=== PATIENT | male | born 1985 | race Caucasian/White ===

== ENCOUNTER 2019-06-01 15:40 | Emergency (ER) | payer OTHER ==
[2019-06-01] MEDS ORDERED: Acetaminophen/oxyCODONE 325-5 MG Tab PO ONE (15:41)
[2019-06-01] MEDS ORDERED: HYDROmorphone 1 MG/ML Syringe IVPUSH ONE ×2 (16:17→18:05)
[2019-06-01] MEDS ORDERED: Ondansetron 4 MG/2 ML SDV IV ONE ×2 (16:17→18:23)
[2019-06-01] MEDS ORDERED: Sodium Chloride 0.9% 10 ML Syringe FLUSH PRN (16:17)
[2019-06-01] MEDS ORDERED: Sodium Chloride 0.9% 1,000 ML IV ONE (16:17)
[2019-06-01 16:40] LABS: ANION GAP 17.7
[2019-06-01] MEDS ORDERED: Ketorolac 30 MG/ML SDV IVPUSH ONE (18:05)
[2019-06-01] MEDS ORDERED: Tamsulosin 0.4 MG Cap.ER PO ONE (18:06)
--- NOTE | 2019-06-01 18:20 | EDM.PDOC ---
"Scribed by Shalonda Ely 06/01/19 [id number] for Kristy Joiner MD ED HPI GENERAL MEDICAL PROBLEM - General Chief Complaint: Abdominal Pain Stated Complaint: PAIN IN RIGHT ABDOMEN AREA Time Seen by Provider: 06/01/19 16:06 Source of Information: Reports: Patient, RN, RN Notes Reviewed History Limitations: Reports: No Limitations - History of Present Illness INITIAL COMMENTS - FREE TEXT/NARRATIVE: Patient presents to ER stating that he starting having right upper quadrant pain about 40 minutes ago and it is increasing in intensity. Onset: Today Duration: Getting Worse Location: Reports: Abdomen Quality: Reports: Ache Severity: Moderate Improves with: Reports: None Worsens with: Reports: None Associated Symptoms: Reports: No Other Symptoms Right Lower Abdomen Pain Score (Numeric/FACES): 8 - Related Data Allergies Allergy/AdvReac Type Severity Reaction Status Date / Time erythromycin base Allergy Cannot Verified 06/01/19 16:03 [From Erythrocin] Remember Home Meds: Home Meds . [No Known Home Meds] 08/21/17 [History] Past Medical History - Past Health History Medical/Surgical History: Denies Medical/Surgical History Social & Family History - Family History Cardiac: Reports: [place] Other Cardiac Family History: grandmother had heart attack, pt is insure what types of cardiac hx his aunts/uncles have had - Caffeine Use Caffeine Use: Reports: Soda ED ROS GENERAL - Review of Systems Review Of Systems: Comprehensive ROS is negative, except as noted in HPI. ED EXAM, GI/ABD - Physical Exam Exam: See Below Exam Limited By: No Limitations General Appearance: Alert, WD/WN, No Apparent Distress Eyes: Bilateral: Normal Appearance Ears: Normal External Exam, Normal Canal, Hearing Grossly Normal, Normal TMs Nose: Normal Inspection, Normal Mucosa, No Blood Throat/Mouth: Normal Inspection, Normal Lips, Normal Teeth, Normal Gums, Normal Oropharynx, Normal Voice, No Airway Compromise Head: Atraumatic, Normocephalic Neck: Normal Inspection Respiratory/Chest: Lungs Clear Cardiovascular: Regular Rate, Rhythm GI/Abdominal Exam: Normal Bowel Sounds, Soft, No Distention, Rebound (RLQ), Tender (RLQ). No: Guarding, Rigid Back Exam: Normal Inspection Extremities: Normal Inspection Neurological: Alert, Oriented Psychiatric: Normal Affect, Normal Mood Skin Exam: Warm, Dry, Intact, Normal Color, No Rash Course - Vital Signs Last Recorded V/S: Last Vital Signs Temp 97.8 F 06/01/19 16:06 Pulse 91 06/01/19 16:06 Resp 16 06/01/19 16:06 BP 159/94 H 06/01/19 16:06 Pulse Ox 96 06/01/19 16:06 - Orders/Labs/Meds Orders: Active Orders 24 hr Category Date Time Status Peripheral IV Care [RC] . DIRECTED Care 06/01/19 16:17 Active Abdomen Pelvis wo Cont [CT] Urgent Exams 06/01/19 16:50 Taken Sodium Chloride 0.9% [Saline Flush] Med 06/01/19 16:17 Active 10 ml FLUSH ASDIRECTED PRN Peripheral IV Insertion Adult [OM.PC] Stat Oth 06/01/19 16:16 Ordered Medication Orders Sodium Chloride (Saline Flush) 10 ml FLUSH ASDIRECTED PRN PRN Reason: Keep Vein Open Last Admin: 06/01/19 16:28 Dose: 10 ml Labs: Laboratory Tests 06/01/19 06/01/19 06/01/19 Range/Units 16:15 16:15 16:30 WBC 8.5 (5.0-10.0) 10^3/uL RBC 5.01 (4.6-6.2) 10^6/uL Hgb 15.0 (14.0-18.0) g/dL Hct 42.4 (40.0-54.0) % MCV 84.6 (80-100) fL MCH 29.9 (27.0-34.0) pg MCHC 35.4 H (33.0-35.0) g/dL Plt Count 224 (150-450) 10^3/uL Neut % (Auto) 64.0 (42.2-75.2) % Lymph % (Auto) 26.4 (20.5-50.1) % [place] % (Auto) 8.2 H (2-8) % Eos % (Auto) 1.3 (1.0-3.0) % Baso % (Auto) 0.1 (0.0-1.0) % Sodium 137 (135-145) mmol/L Potassium 4.7 (3.6-5.0) mmol/L Chloride 101 (101-111) mmol/L Carbon Dioxide 23.0 (21.0-31.0) mmol/L Anion Gap 17.7 BUN 20 H (7-18) mg/dL Creatinine 1.5 H (0.6-1.3) mg/dL Est Cr Clr Drug Dosing 75.44 mL/min Estimated GFR (MDRD) 53 BUN/Creatinine Ratio 13.33 Glucose 113 H (74-105) mg/dL Calcium 9.1 (8.4-10.2) mg/dl Total Bilirubin 1.4 H (0.2-1.0) mg/dL AST 35 (10-42) IU/L ALT 28 (10-60) IU/L Alkaline Phosphatase 58 (42-121) IU/L Total Protein 7.8 (6.7-8.2) g/dl Albumin 4.3 (3.2-5.5) g/dl Globulin 3.5 Albumin/Globulin Ratio 1.23 Amylase 73 (28-100) U/L Lipase 40 (22-51) U/L Urine Color Yellow (YELLOW) Urine Appearance Clear (CLEAR) Urine pH 6.0 (5.0-9.0) Ur Specific [place] 1.020 (1.005-1.030) Urine Protein Negative (NEGATIVE) Urine Glucose (UA) Negative (NEGATIVE) Urine Ketones Negative (NEGATIVE) Urine Occult Blood Moderate H (NEGATIVE) Urine Nitrite Negative (NEGATIVE) Urine Bilirubin Negative (NEGATIVE) Urine Urobilinogen 0.2 (0.2-1.0) mg/dL Ur Leukocyte Esterase Negative (NEGATIVE) Urine RBC 5-10 H /HPF Urine WBC Not seen (0-5/HPF) /HPF Ur Epithelial Cells Rare (NOT SEEN) /HPF Urine Bacteria Rare (0-FEW/HPF) /HPF Urine Mucus Rare (NOT SEEN) /LPF Meds: Medications Generic Name Dose Route Start Last Admin Trade Name Freq PRN Reason Stop Dose Admin Sodium Chloride 10 ml 06/01/19 16:17 06/01/19 16:28 Saline Flush FLUSH 10 ml ASDIRECTED PRN Administration Keep Vein Open Discontinued Medications Generic Name Dose Route Start Last Admin Trade Name Freq PRN Reason Stop Dose Admin Hydromorphone HCl 1 mg 06/01/19 16:17 06/01/19 16:28 Dilaudid IVPUSH 06/01/19 16:18 1 mg ONETIME ONE Administration Hydromorphone HCl 1 mg 06/01/19 18:05 Dilaudid IVPUSH 06/01/19 18:06 ONETIME ONE Sodium Chloride 1,000 mls @ 999 mls/hr 06/01/19 16:17 06/01/19 16:28 Normal Saline IV 06/01/19 17:17 999 mls/hr .BOLUS ONE Administration Ketorolac Tromethamine 30 mg 06/01/19 18:05 Toradol IVPUSH 06/01/19 18:06 ONETIME ONE Ondansetron HCl 4 mg 06/01/19 16:17 06/01/19 16:28 Zofran IV 06/01/19 16:18 4 mg ONETIME ONE Administration Tamsulosin HCl 0.4 mg 06/01/19 18:06 Flomax PO 06/01/19 18:07 ONETIME ONE - Radiology Interpretation Free Text/Narrative:: [facility] [place] [facility] Final Radiology Report Call: [phone] assistance Online chat: [email or web address] Name: RITU VIVAS Age: 34Years M Date: 06/01/2019 SSN: -- : 1985 Study: CT ABDOMEN/PELVIS WO Requesting Physician: KRISTY JOINER Images: [id number] Addl Studies: Provided Clinical History: Contrast: Without Contrast Medium: Contrast Amount: Contrast Method: Page 1 of 2 PROCEDURE INFORMATION: Exam: CT Abdomen And Pelvis Without Contrast Exam date and time: 06/01/2019 4:57 PM Age: 34 years old Clinical indication: Abdominal pain; Patient HX: Rlq pain, non-elevated wbc. Trace hematuria TECHNIQUE: Imaging protocol: Computed tomography of the abdomen and pelvis without contrast. Radiation optimization: All CT scans at this facility use at least one of these dose optimization techniques: automated exposure control; mA and/or kV adjustment per patient size (includes targeted exams where dose is matched to clinical indication); or iterative reconstruction. COMPARISON: No relevant prior studies available. FINDINGS: Liver: Normal. No mass. Gallbladder and bile ducts: Normal. No calcified stones. No ductal dilation. Pancreas: Normal. No ductal dilation. Spleen: Normal. No splenomegaly. Adrenals: Normal. No mass. Kidneys and ureters: Absent left kidney. Right kidney with mild hydroureteronephrosis. Distal right ureteral 2 mm calculus. This is just above the bladder. There are multiple additional punctate right renal calculi within calices. At least 3 additional 1-2 mm calculi are noted. Stomach and bowel: Unremarkable. No obstruction. No mucosal thickening. Appendix: No evidence of appendicitis. Intraperitoneal space: Unremarkable. No free air. No significant fluid collection. Vasculature: Unremarkable. No abdominal aortic aneurysm. Lymph nodes: Unremarkable. No enlarged lymph nodes. RITU VIVAS | Final Radiology Report CONFIDENTIALITY STATEMENT This report is intended only for use by the referring physician, and only in accordance with law. If you received this in error, call [phone]. Page 2 of 2 Bladder: Unremarkable urinary bladder. Reproductive: Unremarkable as visualized. Bones/joints: Unremarkable. No acute fracture. Soft tissues: Unremarkable. IMPRESSION: 1. Right hydroureteronephrosis of [id number] severity with distal right ureteral 2 mm calculus. Additional nonobstructive right renal calculi in the upper collecting system. 2. Absent left kidney. Recommend clinical correlation. Thank you for allowing us to participate in the care of your patient. Dictated and Authenticated by: Flynn Chacon MD 06/01/2019 5:52 PM Central Time ([place] & [place]) - Re-Assessments/Exams Free Text/Narrative Re-Assessment/Exam: 06/01/19 18:[address] Tracy (urologist) via [facility]. He agrees to see the pt in clinic. Departure - Departure Time of Disposition: 18:16 Disposition: Home, Self-Care 01 Condition: Fair Clinical Impression: Kidney stone on right side, Solitary right kidney - Discharge Information *PRESCRIPTION DRUG MONITORING PROGRAM REVIEWED*: No *COPY OF PRESCRIPTION DRUG MONITORING REPORT IN PATIENT TOMMIE: No Instructions: Kidney Stones, Awry-rr-Dqva, Renal Colic, Udgh-pa-Dwqs Forms: ED Department Discharge Additional Instructions: Rx: Percocet (Oxycodone APAP) 5mg/325mg *Do not drive while under the influence of this medication. Rx: Flomax 0.4mg Rx: Zofran 4mg Strain all urine to see if you pass the stone. Call [phone] tomorrow morning to schedule an appointment with Dr. Tracy at [facility] in [place] for evaluation of the kidney stone, and for the finding of a single kidney. Sepsis Event Note - Evaluation Sepsis Screening Result: No Definite Risk - Focused Exam Vital Signs: Vital Signs Temp Pulse Resp BP Pulse Ox 06/01/19 16:06 97.8 F 91 16 159/94 H 96 Date Exam was Performed: 06/01/19 Time Exam was Performed: 18:15 - My Orders Last 24 Hours: My Active Orders 06/01/19 16:16 Peripheral IV Insertion Adult [OM.PC] Stat 06/01/19 16:17 Peripheral IV Care [RC] . DIRECTED Sodium Chloride 0.9% [Saline Flush] 10 ml FLUSH ASDIRECTED PRN 06/01/19 16:50 Abdomen Pelvis wo Cont [CT] Urgent - Assessment/Plan Last 24 Hours: My Active Orders 06/01/19 16:16 Peripheral IV Insertion Adult [OM.PC] Stat 06/01/19 16:17 Peripheral IV Care [RC] . DIRECTED Sodium Chloride 0.9% [Saline Flush] 10 ml FLUSH ASDIRECTED PRN 06/01/19 16:50 Abdomen Pelvis wo Cont [CT] Urgent I have read and agree with the documentation that has been completed regarding this visit. By signing this record, I attest that the documentation was completed in my physical presence and is an accurate record of the encounter."
[2019-06-01] MEDS ORDERED: Acetaminophen/oxyCODONE 325-5 MG Tab ONE (18:49)
== END 2019-06-01 19:02 | disposition home or self-care (01) ==
LOC: DL.ED 15:40
DX: N20.0 Calculus of kidney (principal); Z88.1 Allergy status to other antibiotic agents
CPT/HCPCS: 36415; 74176; 80053; 81001; 82150; 83690; 85025; 96361; 96374; 96375; 96376; 99284; A9270; J1170; J1885; J2405; J7030

== ENCOUNTER 2021-03-07 10:22 | Emergency (ER) | payer OTHER ==
--- NOTE | 2021-03-07 10:52 | EDM.PDOC ---
"<Randy Joiner - Last Filed: 03/07/21 12:27> ED HPI GENERAL MEDICAL PROBLEM - General Chief Complaint: Chest Pain Stated Complaint: [id number] CHEST PAIN x3 DAYS DIZZY Time Seen by Provider: 03/07/21 11:00 - Related Data Allergies Allergy/AdvReac Type Severity Reaction Status Date / Time erythromycin base Allergy Cannot Verified 03/07/21 10:45 [From Erythrocin] Remember Home Meds: Home Meds . [No Known Home Meds] 08/21/17 [History] Course - Radiology Interpretation Free Text/Narrative:: [facility] [place] [facility] Final Radiology Report Call: [phone] assistance Online chat: [email or web address] Name: RITU VIVAS Age: 36Years M Date: 03/07/2021 SSN: -- : 1985 Study: CT CHEST W CONT Requesting Physician: Washington Palmer Images: [id number] Addl Studies: Provided Clinical History: sob, suspected PE L upper chest pain Contrast: With Contrast Medium: Isovue 370 Contrast Amount: 80 mL Contrast Method: Intravenous (IV) Page 1 of 2 PROCEDURE INFORMATION: Exam: CT Chest With Contrast; Diagnostic Exam date and time: 03/07/2021 11:49 AM Age: 36 years old Clinical indication: Shortness of breath and other: Suspected pe; Other: Left upper chest pain; Additional info: SOB, suspected pe L upper chest pain TECHNIQUE: Imaging protocol: Diagnostic computed tomography of the chest with contrast. Radiation optimization: All CT scans at this facility use at least one of these dose optimization techniques: automated exposure control; mA and/or kV adjustment per patient size (includes targeted exams where dose is matched to clinical indication); or iterative reconstruction. Contrast material: ISOVUE 370; Contrast volume: 80 ml; Contrast route: INTRAVENOUS (IV); COMPARISON: CT Abdomen Pelvis wo Cont 06/01/2019 4:57 PM FINDINGS: Limitations: The study is technically limited by breathing motion artifact. Lungs: Mild ill-defined perihilar opacities present in the left lung. Mild ill- defined foci of airspace disease in the inferior right middle lobe. Two noncalcified left lower lobe nodules measuring up to approximately 7 mm in size. Pleural spaces: No pleural effusion or pneumothorax. Heart: The heart is not enlarged. No pericardial effusion. Aorta: No thoracic aortic aneurysm or dissection. Lymph nodes: No pathologically enlarged lymph nodes. Bones/joints: No acute osseous abnormality. Multilevel Schmorl's node formation in the thoracic spine. RITU VIVAS | Final Radiology Report CONFIDENTIALITY STATEMENT This report is intended only for use by the referring physician, and only in accordance with law. If you received this in error, call [phone]. Page 2 of 2 Soft tissues: No acute soft tissue abnormality. IMPRESSION: 1. Mild bilateral airspace disease. This may be due to pneumonia. 2. Nonspecific left lower lobe nodules. For patients at low risk (minimal or absent history of smoking and of other known risk factors), recommend CT Chest at 3-6 months, then consider CT Chest at 18- 24 months. For patients at high risk (history of smoking or of other known risk factors), recommend CT Chest at 3-6 months, then CT Chest at 18-24 months. (Reference: Joel) REFERENCES: Morrohojayme H, et al. Guidelines for Management of Incidental Pulmonary Nodules Detected on CT Images: From the Fleischner Society 2017. Radiology. 2017;284(1):228-243. Thank you for allowing us to participate in the care of your patient. Dictated and Authenticated by: Rg Deleon MD 03/07/2021 12:27 PM Central Time ([place] & [place]) Departure - Departure Disposition: Home, Self-Care 01 Clinical Impression: Pneumonia Qualifiers: Pneumonia type: due to unspecified organism Laterality: right Lung location: upper lobe of lung Qualified Code(s): J18.9 - Pneumonia, unspecified organism Instructions: Community-Acquired Pneumonia, Adult Forms: ED Department Discharge Additional Instructions: RX: Levaquin Use tylenol and motrin for pain as needed. If any new symptoms or concerns develop contact your [facility] facility or return to the ER. <Washington Palmer - Last Filed: 03/07/21 12:55> ED HPI GENERAL MEDICAL PROBLEM - History of Present Illness INITIAL COMMENTS - FREE TEXT/NARRATIVE: 36 y/o M c/o Chest pressure upper left chest x 4 days. Pn is 4/10 dull, non radiating. He reports some nausea this morning which has subsided on its own. Family hx of blood clots with his dad having hx of DVTs. Denies fever, cough, chills, db, abd pn, back pn, pelvic pn, drugs, etoh. 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 Left Chest Pain Score (Numeric/FACES): 4 Past Medical History - Past Health History Medical/Surgical History: Denies Medical/Surgical History HEENT History: Reports: Impaired Vision Cardiovascular History: Reports: None Respiratory History: Reports: None Gastrointestinal History: Reports: None Genitourinary History: Reports: Renal Calculus, Other (See Below) Other Genitourinary History: Solitary R) kidney Musculoskeletal History: Reports: None Neurological History: Reports: None Psychiatric History: Reports: None Endocrine/Metabolic History: Reports: None Hematologic History: Reports: None Immunologic History: Reports: None Oncologic (Cancer) History: Reports: None Dermatologic History: Reports: None - Infectious Disease History Infectious Disease History: Reports: None - Past Surgical History Head Surgeries/Procedures: Reports: None Social & Family History - Family History Family Medical History: No Pertinent Family History Cardiac: Reports: [place] Other Cardiac Family History: grandmother had heart attack, pt is insure what types of cardiac hx his aunts/uncles have had - Tobacco Use Tobacco Use Status *Q: Never Tobacco User Second Hand Smoke Exposure: No - Caffeine Use Caffeine Use: Reports: None - Recreational Drug Use Recreational Drug Use: No ED ROS GENERAL - Review of Systems Review Of Systems: Comprehensive ROS is negative, except as noted in HPI. ED EXAM, GENERAL - Physical Exam Exam: See Below Exam Limited By: No Limitations General Appearance: Alert, WD/WN, No Apparent Distress Ears: Normal External Exam, Normal Canal, Hearing Grossly Normal, Normal TMs Nose: Normal Inspection, Normal Mucosa, No Blood Throat/Mouth: Normal Inspection, Normal Lips, Normal Teeth, Normal Gums, Normal Oropharynx, Normal Voice, No Airway Compromise Head: Atraumatic, Normocephalic Neck: Normal Inspection, Supple, Non-Tender, Full Range of Motion Respiratory/Chest: No Respiratory Distress, Lungs Clear, Normal Breath Sounds, No Accessory Muscle Use, Chest Non-Tender Cardiovascular: Normal Peripheral Pulses, Regular Rate, Rhythm, No Edema, No Gallop, No JVD, No Murmur, No Rub GI/Abdominal: Soft, Non-Tender (Male) Exam: Deferred Rectal (Males) Exam: Deferred Back Exam: Normal Inspection, Full Range of Motion, NT Extremities: Normal Inspection, Normal Range of Motion, Non-Tender, Normal Capillary Refill, No Pedal Edema Neurological: Alert, Oriented, CN II-XII Intact, Normal Cognition, Normal Gait, Normal Reflexes, No Motor/Sensory Deficits Psychiatric: Normal Affect, Normal Mood Skin Exam: Warm, Dry, Intact, Normal Color, No Rash #1 Interpretation EKG Date: 03/07/21 Time: 10:41 Rhythm: NSR [place]: Normal P-Wave: Present QRS: Normal ST-T: Normal QT: Normal Course - Vital Signs Last Recorded V/S: Last Vital Signs Temp 99 F 03/07/21 10:46 Pulse 116 H 03/07/21 10:46 Resp 18 03/07/21 10:46 BP 149/94 H 03/07/21 10:46 Pulse Ox 96 03/07/21 10:46 - Orders/Labs/Meds Orders: Active Orders 24 hr Category Date Time Status DRUG SCREEN URINE BIORAD [URCHEM] Stat Lab 03/07/21 10:50 Ordered Labs: Laboratory Tests 03/07/21 03/07/21 03/07/21 Range/Units 10:40 10:40 10:40 WBC 14.4 H (5.0-10.0) 10^3/uL RBC 5.40 (4.6-6.2) 10^6/uL Hgb 16.2 (14.0-18.0) g/dL Hct 46.3 (40.0-54.0) % MCV 85.7 (80-100) fL MCH 30.0 (27.0-34.0) pg MCHC 35.0 (33.0-35.0) g/dL Plt Count 175 (150-450) 10^3/uL Neut % (Auto) 78.3 H (42.2-75.2) % Lymph % (Auto) 15.3 L (20.5-50.1) % [place] % (Auto) 5.8 (2-8) % Eos % (Auto) 0.5 L (1.0-3.0) % Baso % (Auto) 0.1 (0.0-1.0) % Sodium 142 (136-145) mmol/L Potassium 4.0 (3.5-5.1) mmol/L Chloride 105 (98-107) mmol/L Carbon Dioxide 27 (21-32) mmol/L Anion Gap 14.0 H (7-13) mEq/L BUN 18 (7-18) mg/dL Creatinine 1.04 (0.70-1.30) mg/dL Est Cr Clr Drug Dosing 106.74 mL/min Estimated GFR (MDRD) > 60 BUN/Creatinine Ratio 17.3 (No establ ref range) Glucose 96 (70-99) mg/dL Lactic Acid 1.4 (0.4-2.0) mmol/L Calcium 9.2 (8.5-10.1) mg/dL Phosphorus 3.6 (2.6-4.7) mg/dL Magnesium 1.9 (1.8-2.4) mg/dL Total Bilirubin 0.5 (0.2-1.0) mg/dL AST 16 (15-37) U/L ALT 34 (16-63) U/L Alkaline Phosphatase 85 (46-116) U/L Troponin I High Sens 6 (<=76) pg/mL C-Reactive Protein 0.2 (0.0-0.9) mg/dL B-Natriuretic Peptide < 5 (0-100) pg/ml Total Protein 7.6 (6.4-8.2) g/dL Albumin 4.1 (3.4-5.0) g/dL Globulin 3.5 Albumin/Globulin Ratio 1.2 Amylase 67 (25-115) U/L Lipase 177 (73-393) U/L TSH, Ultra Sensitive 3.20 (0.36-3.74) uIU/mL Ethyl Alcohol < 3 (0) mg/dL SARS-CoV-2 RNA (LEONOR) (NEGATIVE) 03/07/21 Range/Units 11:05 WBC (5.0-10.0) 10^3/uL RBC (4.6-6.2) 10^6/uL Hgb (14.0-18.0) g/dL Hct (40.0-54.0) % MCV (80-100) fL MCH (27.0-34.0) pg MCHC (33.0-35.0) g/dL Plt Count (150-450) 10^3/uL Neut % (Auto) (42.2-75.2) % Lymph % (Auto) (20.5-50.1) % [place] % (Auto) (2-8) % Eos % (Auto) (1.0-3.0) % Baso % (Auto) (0.0-1.0) % Sodium (136-145) mmol/L Potassium (3.5-5.1) mmol/L Chloride (98-107) mmol/L Carbon Dioxide (21-32) mmol/L Anion Gap (7-13) mEq/L BUN (7-18) mg/dL Creatinine (0.70-1.30) mg/dL Est Cr Clr Drug Dosing mL/min Estimated GFR (MDRD) BUN/Creatinine Ratio (No establ ref range) Glucose (70-99) mg/dL Lactic Acid (0.4-2.0) mmol/L Calcium (8.5-10.1) mg/dL Phosphorus (2.6-4.7) mg/dL Magnesium (1.8-2.4) mg/dL Total Bilirubin (0.2-1.0) mg/dL AST (15-37) U/L ALT (16-63) U/L Alkaline Phosphatase (46-116) U/L Troponin I High Sens (<=76) pg/mL C-Reactive Protein (0.0-0.9) mg/dL B-Natriuretic Peptide (0-100) pg/ml Total Protein (6.4-8.2) g/dL Albumin (3.4-5.0) g/dL Globulin Albumin/Globulin Ratio Amylase (25-115) U/L Lipase (73-393) U/L TSH, Ultra Sensitive (0.36-3.74) uIU/mL Ethyl Alcohol (0) mg/dL SARS-CoV-2 RNA (LEONOR) Negative (NEGATIVE) Meds: Medications Discontinued Medications Generic Name Dose Route Start Last Admin Trade Name Freq PRN Reason Stop Dose Admin Iopamidol 100 ml 03/07/21 11:29 03/07/21 11:59 Iopamidol 755 Mg/Ml 100 Ml Bottle IVPUSH 03/07/21 11:30 80 ml ONETIME ONE Administration - Re-Assessments/Exams Free Text/Narrative Re-Assessment/Exam: 03/07/21 12:33 There is no PE. The CT indicates a possible PNA in the Left upper lobe. I will discharge the pt with an RX for Levaquin. Departure - Departure Time of Disposition: 12:36 Condition: Good Sepsis Event Note (ED) - Focused Exam Vital Signs: Vital Signs Temp Pulse Resp BP Pulse Ox 03/07/21 10:46 99 F 116 H 18 149/94 H 96 - My Orders Last 24 Hours: My Active Orders 03/07/21 10:50 DRUG SCREEN URINE BIORAD [URCHEM] Stat - Assessment/Plan Last 24 Hours: My Active Orders 03/07/21 10:50 DRUG SCREEN URINE BIORAD [URCHEM] Stat"
[2021-03-07 11:13] LABS: CHLORIDE,CL 105 mmol/L (98-107); SODIUM,NA 142 mmol/L (136-145)
[2021-03-07] MEDS ORDERED: Iopamidol 755 Mg/ML 100 ML Bottle IVPUSH ONE (11:29)
--- NOTE | 2021-03-07 12:27 | CT ---
PROCEDURE INFORMATION: Exam: CT Chest With Contrast; Diagnostic Exam date and time: 03/07/2021 11:49 AM Age: 36 years old Clinical indication: Shortness of breath and other: Suspected pe; Other: Left upper chest pain; Additional info: SOB, suspected pe L upper chest pain TECHNIQUE: Imaging protocol: Diagnostic computed tomography of the chest with contrast. Radiation optimization: All CT scans at this facility use at least one of these dose optimization techniques: automated exposure control; mA and/or kV adjustment per patient size (includes targeted exams where dose is matched to clinical indication); or iterative reconstruction. Contrast material: ISOVUE 370; Contrast volume: 80 ml; Contrast route: INTRAVENOUS (IV); COMPARISON: CT Abdomen Pelvis wo Cont 06/01/2019 4:57 PM FINDINGS: Limitations: The study is technically limited by breathing motion artifact. Lungs: Mild ill-defined perihilar opacities present in the left lung. Mild ill-defined foci of airspace disease in the inferior right middle lobe. Two noncalcified left lower lobe nodules measuring up to approximately 7 mm in size. Pleural spaces: No pleural effusion or pneumothorax. Heart: The heart is not enlarged. No pericardial effusion. Aorta: No thoracic aortic aneurysm or dissection. Lymph nodes: No pathologically enlarged lymph nodes. Bones/joints: No acute osseous abnormality. Multilevel Schmorl's node formation in the thoracic spine. Soft tissues: No acute soft tissue abnormality. IMPRESSION: 1. Mild bilateral airspace disease. This may be due to pneumonia. 2. Nonspecific left lower lobe nodules. For patients at low risk (minimal or absent history of smoking and of other known risk factors), recommend CT Chest at 3-6 months, then consider CT Chest at 18-24 months. For patients at high risk (history of smoking or of other known risk factors), recommend CT Chest at 3-6 months, then CT Chest at 18-24 months. (Reference: Joel) REFERENCES: Joel Bolton, et al. Guidelines for Management of Incidental Pulmonary Nodules Detected on CT Images: From the Fleischner Society 2017. Radiology. 2017;284(1):228-243.
== END 2021-03-07 12:53 | disposition home or self-care (01) ==
LOC: DL.ED 10:22
DX: J18.9 Pneumonia, unspecified organism (principal); Z88.1 Allergy status to other antibiotic agents; Z20.822 Contact with and (suspected) exposure to COVID-19
CPT/HCPCS: 36415; 71260; 80053; 80307; 82150; 83605; 83690; 83735; 83880; 84100; 84443; 84484; 85025; 86140; 87635; 93005; 99285; Q9967; U0002